=== PATIENT | female | born 2000 | race Caucasian/White ===

== ENCOUNTER 2023-08-16 19:08 | Emergency (ER) | payer BC, SELFPAY ==
[2023-08-16 19:22] VITALS: BP 107/54; PULSE 85; RESP 20; TEMP 36.4; O2SAT 98; BMI 39.1
--- NOTE | 2023-08-16 19:33 | ED_ITS ---
HPI - Wound/Laceration General Chief Complaint: Wound/Laceration Stated Complaint: LACERATION/PUNCTURE Time Seen by Provider: 08/16/23 19:11 Source: patient Mode of arrival: walk-in Limitations: no limitations History of Present Illness HPI narrative: patient is a 23-year-old female who presents to the emergency department. Evaluation of the laceration to the distal tip of the left index finger. Patient states she was cutting a squash when a serrated knife became stuck and while trying to dislodge the knife, she had her fingertip. Unknown last tetanus. She is not concerned for . Bleeding has been well-controlled. Related Data Previous Rx's Medication Instructions Recorded naproxen sodium 550 mg tablet 550 mg PO BID PRN pain #10 tabs 08/16/23 Allergies Allergy/AdvReac Type Severity Reaction Status Date / Time No Known Drug Allergies Allergy Verified 08/16/23 19:27 Review of Systems ROS Constitutional Denies: fever or chills Respiratory Denies: shortness of breath or cough Gastrointestinal Denies: nausea or vomiting Musculoskeletal Denies: back pain Integumentary/Breast Denies: rash Hematologic/Lymphatic Denies: easy bruising PFSH [facility] Social History Smoking status: Never smoker Exam Narrative Exam Narrative: Gen.: Awake, alert, in no distress Head: Normocephalic, atraumatic ENT: Moist mucous membranes Respiratory: No respiratory distress Extremities: Moves extremities equally, 1.5 cm superficial laceration of the left 2nd finger, distal phalanx. Laceration is distal to the DIP joint. There is no joint laceration or fingernail laceration. The laceration is well approximated, no active bleeding. No subcutaneous tissue exposure. Psych: Normal mood and affect Neuro: No focal neuro deficit Skin: Warm, dry Constitutional Vital Signs, click to edit/add: Last Vital Signs Temp 97.6 F 08/16/23 19:22 Pulse 85 08/16/23 19:22 Resp 20 08/16/23 19:22 BP 107/54 08/16/23 19:22 Pulse Ox 98 08/16/23 19:22 O2 Del Method Room Air 08/16/23 19:22 Course Vital Signs Vital signs: Vital Signs Temperature 97.6 F 08/16/23 19:22 Pulse Rate 85 08/16/23 19:22 Respiratory Rate 20 08/16/23 19:22 Blood Pressure 107/54 08/16/23 19:22 Pulse Oximetry 98 08/16/23 19:22 Oxygen Delivery Method Room Air 08/16/23 19:22 Temperature 97.6 F 08/16/23 19:22 Pulse Rate 85 08/16/23 19:22 Respiratory Rate 20 08/16/23 19:22 Blood Pressure 107/54 08/16/23 19:22 Pulse Oximetry 98 08/16/23 19:22 Oxygen Delivery Method Room Air 08/16/23 19:22 MDM - Wound/Laceration MDM Narrative Medical decision making narrative: patient became lightheaded on arrival to the Emergency Room, she states she does not tolerate pain, needles or blood. Tetanus is updated in the Emergency Room. As the laceration is distal to the joint, well approximated we will use tissue adhesive. The laceration was soaked in Hibiclens and saline. Tissue adhesive used to close the area and a bulky dressing was applied. Follow-up with PCP and return to the Emergency Room if symptoms change or worsen. Medical Records Attestation: I reviewed the patient's medical records. Discharge Plan Discharge Chief Complaint: Wound/Laceration Clinical Impression: Finger laceration Patient Disposition: Home, Self-Care Time of Disposition Decision: 19:36 Condition: Good Prescriptions / Home Meds: New naproxen sodium 550 mg tablet 550 mg PO BID PRN (Reason: pain) Qty: 10 0RF Instructions: Finger Laceration (ED), Skin Adhesive Care (ED) Stand Alone Forms: Portal Instructions Referrals: Gaurav Wheeler DO [Primary Care Provider] - 1 week Discharge Date/Time: 08/16/23 20:26
[2023-08-16] MEDS: ADACEL DIPH,PERTUSS(ACELL),TET VAC/PF 0.5 ML ADULT SYRINGE IM (19:58)
[2023-08-16] MEDS: ONDANSETRON 4 MG RAPDIS TABLET SL (20:18)
[2023-08-16] MEDS: HYDROCODONE/ACET 5-325 MG TABLET 1 TAB PO (20:18)
[2023-08-16] MEDS: IBUPROFEN 600 MG TABLET PO (20:18)
== END 2023-08-16 20:26 | disposition home or self-care (01) ==
PROVIDERS: Emergency Provider Emergency Medicine; PCP Family Medicine
DX: S61.211A Laceration without foreign body of left index finger without damage to nail, initial encounter (principal); Z23 Encounter for immunization; W26.0XXA Contact with knife, initial encounter
CPT/HCPCS: 12001; 90471; 90715; 99283

== ENCOUNTER 2024-02-21 17:27 | Emergency (ER) | payer BC, SELFPAY ==
[2024-02-21 17:29] VITALS: BP 167/94; PULSE 102; TEMP 37; O2SAT 98; BMI 37.8
--- NOTE | 2024-02-21 17:34 | XR_ITS ---
[address] [address] Patient Name: DRAKE GRIFFITHS MRN: [id number] date: 2000 Sex: F Assigned Patient Location: ER Current Patient Location: ED.MAIN Accession/Order Number: [id number] Exam Date: 02/21/2024 17:45 Report Date: 02/21/2024 20:53 At the request of: LILA HINTON Procedure: XR knee RT 4V EXAMINATION: XR knee RT 4V, , 02/21/2024 5:45 PM EDT INDICATION: right knee pain HISTORY: Ordering Provider Reason for Exam: right knee pain Technologist Note: Additional: COMPARISON: None. TECHNIQUE: Right knee x-ray: 3 view(s). FINDINGS: No acute fracture. Joint alignment is anatomic. Joint spaces are preserved. No significant joint effusion. Soft tissues are within normal limits. XR/XR knee RT 4V IMPRESSION: No acute fracture or traumatic malalignment. Electronically authenticated by: XOCHITL FITZPATRICK Date: 02/21/2024 20:53
--- NOTE | 2024-02-21 17:41 | ED.GENADUL1 ---
HPI HPI - General Adult General Chief complaint: Extremity Injury, Upper Stated complaint: Lower Extremity Injury Time Seen by Provider: 02/21/24 17:32 Source: patient Mode of arrival: walk-in Limitations: no limitations History of Present Illness HPI narrative: Patient is a 23-year-old female presents to the emergency department for 2-week history of right knee pain. She states she occasionally feels popping in the bilateral knees but states the right knee popped 2 weeks ago and while she was moving the other day, she had an increase in pain to the anteromedial aspect of the right knee. She denies any falls or injuries. She denies any ankle pain or left lower extremity pain. She is not concerned for . She has been using ibuprofen without improvement. No calf pain. Related Data Previous Rx's ?Medication ?Instructions ?Recorded naproxen sodium 550 mg tablet 550 mg PO BID PRN pain #10 tabs 08/16/23 methocarbamol 750 mg tablet 750 mg PO TID PRN pain #20 tabs 02/21/24 methylprednisolone 4 mg tablets in See Rx Instructions .Route 02/21/24 a dose pack (Medrol (Kurt)) .COMPLEX #21 ea Allergies Allergy/AdvReac Type Severity Reaction Status Date / Time No Known Drug Allergies Allergy Verified 08/16/23 19:27 Opioid HPI Opioid Management Most Recent Opioid Data: Last Pain Scale 7 02/21/24 17:35 Review of Systems ROS Constitutional Denies: fever or chills Ears, nose, mouth, and throat Denies: throat pain or nasal congestion Cardiovascular Denies: chest pain Respiratory Denies: shortness of breath Gastrointestinal Denies: nausea or vomiting Musculoskeletal Reports: extremity pain, extremity swelling and joint pain; Denies: back pain or neck pain Integumentary/Breast Denies: rash Neurological Denies: headache Hematologic/Lymphatic Denies: easy bruising or easy bleeding PFSH PFSH Social History Smoking status: Never smoker Exam Narrative Exam Narrative: Gen.: Awake, alert, in no distress Head: Normocephalic, atraumatic ENT: Moist mucous membranes Respiratory: No respiratory distress Extremities: Moves extremities equally, Tenderness of the anteromedial aspect of the right patella, exam is limited by body habitus but there is no obvious joint effusion or deformity of the right knee. Normal flexion and extension of the right knee with no pain over the posterior right knee or calf. Normal dorsiflexion and plantarflexion of the right foot. Psych: Normal mood and affect Neuro: No focal neuro deficit Skin: Warm, dry, intact Constitutional Vital Signs, click to edit/add: Last Vital Signs Temp 98.6 F 02/21/24 17:29 Pulse 102 H 02/21/24 17:29 Resp 18 02/21/24 17:29 BP 167/94 H 02/21/24 17:29 Pulse Ox 98 02/21/24 17:29 O2 Del Method Room Air 02/21/24 17:29 Course Vital Signs Vital signs: Vital Signs Temperature 98.6 F 02/21/24 17:29 Pulse Rate 102 H 02/21/24 17:29 Respiratory Rate 18 02/21/24 17:29 Blood Pressure 167/94 H 02/21/24 17:29 Pulse Oximetry 98 02/21/24 17:29 Oxygen Delivery Method Room Air 02/21/24 17:29 Temperature 98.6 F 02/21/24 17:29 Pulse Rate 102 H 02/21/24 17:29 Respiratory Rate 18 02/21/24 17:29 Blood Pressure 167/94 H 02/21/24 17:29 Pulse Oximetry 98 02/21/24 17:29 Oxygen Delivery Method Room Air 02/21/24 17:29 Medical Decision Making MDM Narrative Medical decision making narrative: X-rays of the right knee with no evidence of acute fracture or dislocation. Patient with a benign exam consistent with right knee strain/sprain. She was placed in an Carl wrap and remains neurovascularly intact. Rest, ice, elevate. Follow-up with orthopedics if needed and follow-up with PCP for further evaluation and treatment. Medrol Dosepak and Robaxin given for home. Medical Records Medical records reviewed: Yes I reviewed the patient's medical records Imaging Data xr knee: Attestation: I have reviewed the pertinent imaging results. Discharge Plan Discharge Stand Alone Forms: Portal Instructions Chief Complaint: Extremity Injury, Upper Clinical Impression: Right knee sprain, Acute pain of right knee Patient Disposition: Home, Self-Care Time of Disposition Decision: 17:55 Condition: Good Prescriptions / Home Meds: New methocarbamol 750 mg tablet 750 mg PO TID PRN (Reason: pain) Qty: 20 0RF methylprednisolone [Medrol (Kurt)] 4 mg tablets,dose pack See Rx Instructions .ROUTE .COMPLEX Qty: 21 0RF Rx Instructions: Taper as directed No Action naproxen sodium 550 mg tablet 550 mg PO BID PRN (Reason: pain) Qty: 10 0RF Print Language: [place]an Instructions: Knee Sprain (ED) Referrals: Gaurav Wheeler DO [Primary Care Provider] - 1 week Tavo Putnam MD [Physician] - 1 week Discharge Date/Time: 02/21/24 18:02
--- OUTSIDE RECORDS SUMMARY | 2024-02-21 17:56 | XMS_ITS | CCD ---
Author Organization [facility] Care Team Providers Care Crop Puller Name Role Phone Gaurav Brantley Unavailable DR GAURAV BRANTLEY Primary Care Unavailable DR RAKESH CHEN Admitting Unavailable APRIL, DR RAKESH Walker Attending Unavailable APRIL, DR RAKESH Walker Consulting Unavailable DR MARIANNA MILES Consulting Unavailable DR GAURAV BRANTLEY Primary Care Unavailable BAHMAN SERRA Admitting BAHMAN Lopez Attending Unavailable APRIL, DR RAKESH Walker Consulting Unavailable BAHMAN SERRA Consulting Unavailable Medications Current Medications Medication Drug Class(es) Dates Sig (Normalized) Sig (Original) azithromycin 250 mg oral tablet (7 sources) Macrolide Antimicrobial Start: 10-02-2023 Zithromax Z-Kurt 250 MG 2 tablets on the first day, then 1 tablet daily for 4 days Orally Once a day for 5 day(s) Sep, Active Start: 12-28-2022 Zithromax Z-Pa k 250 MG as directed Orally as directed 1 pack Dec, Active betamethasone 1 mg/ml topical cream (1 source) Corticosteroid Start: 11-16-2023 Betamethasone Valerate 0.1 % 1 application Externally Once a day Please dispense large tube or jar Oct, Active ondansetron 4 mg disintegrating oral tablet (7 sources) Serotonin-3 Receptor Antagonist Start: 02-04-2022 take 1 tablet by mouth every six hours as needed Ondansetron 4 MG 1 tablet on the tongue and allow to dissolve Orally every 6 hrs prn Jan, Active paxlovid (300/100) 20 x 150 mg & 10 x 100mg tablet therapy pack (2 sources) Start: 11-02-2023 Paxlovid (300/100) 20 x 150 MG & 10 x 100MG as directed Orally GFR >60, positive covid at home 11/02/23 Oct, Active predniSONE 20 mg oral tablet (8 sources) Start: 11-16-2023 predniSONE 20 MG 1 tablet Orally BID for 7 days then Once a day for 7 days Oct, Active Start: 10-02-2023 predniSONE 20 MG 1 tablet Orally Twice a day for five days, daily for five days Sep, Active Start: 12-28-2022 predniSONE 10 MG 1 tablet Orally BID x 5 days then daily x 5 days for 10 days Dec, Active sulfamethoxazole 800 mg / trimethoprim 160 mg oral tablet (6 sources) Dihydrofolate Reductase Inhibitor Antibacterial, Sulfonamide Antimicrobial Start: 04-28-2021 take 1 tablet by mouth every twelve hours Bactrim DS 800-160 MG 1 tablet Orally Twice a day Mar, Active Problems Active Problems Problem Classification Problem Date Documented Da te Episodic/Chronic Allergic reactions (1 source) Unspecified contact dermatitis, unspecified cause Episodic Disorders of lipid metabolism (7 sources) Hyperlipidemia; Translations: [Hyperlipidemia, unspecified] Chronic Fever of unknown origin (1 source) Fever, unspecified; Translations: [FEVER UNSPECIFIED] Onset: 09-06-2022 Episodic Headache; including migraine (7 sources) Headache; Translations: [Headache] Episodic Nausea and vomiting (10 sources) Nausea; Translations: [Nausea] Onset: 02-04-2022 Resolved: 02-04-2022 Episodic Other disorders of stomach and duodenum (7 sources) Indigestion; Translations: [Functional dyspepsia] Episodic Other ear and sense organ disorders (1 source) Ear sensations - finding; Translations: [Other specified disorders of ear, bilateral] Episodic Other ear and sense organ disorders (1 source) Other specified disorders of ear, bilateral Episodic Other inflammatory condition of skin (1 source) Pruritus, unspecified; Translations: [Pruritus] Episodic Other upper respiratory infections (6 sources) Acute pharyngitis, unspecified; Translations: [ACUTE PHARYNGITIS UNSPECIFIED] Onset: 02-04-2022 Resolved: 02-04-2022 Episodic Ovarian cyst (7 sources) Cyst of ovary; Translations: [Unspecified ovarian cyst, unspecified side] Episodic Residual codes; unclassified (7 sources) Generalized aches and pains; Translations: [Pain, unspecified] Episodic Spondylosis; intervertebral disc disorders; other back problems (7 sources) Neck pain; Translations: [Cervicalgia] Episodic Unclassified (1 source) CONTACT W/AND (SUSP) EXPOS COVID-19; Translations: [CONTACT W/AND (SUSP) EXPOS COVID-19] Onset: 04-27-2022 Past or Other Problems Problem Classification Problem Date Documented Da te Episodic/Chronic Conditions associated with dizziness or vertigo (5 sources) Dizziness and giddiness; Translations: [DIZZINESS AND GIDDINESS] Onset: 02-04-2022 Resolved: 02-04-2022 Episodic Genitourinary symptoms and ill-defined conditions (1 source) Other abnormal findings in urine; Translations: [OTHER ABNORMAL FINDINGS IN URINE] Onset: 04-27-2022 Episodic Residual codes; unclassified (1 source) Other general symptoms and signs Onset: 02-04-2022 Resolved: 02-04-2022 Episodic Residual codes; unclassified (1 source) Family history of diabetes mellitus Onset: 02-04-2022 Resolved: 02-04-2022 Episodic Unclassified (1 source) Cough R05.9 Unclassified (1 source) Unclassified (1 source) History of COVID-19 Z86.16 Viral infection (4 sources) Disease caused by 2019-nCoV; Translations: [COVID-19] Results Test Name Value Interpretation Reference Range Facility COVID + FLU Quick Testingon 12-28-2022 SARS-CoV-2 (COVID-19) RNA VINICIO+probe Ql (Unsp spec) Negative [facility] Other COVID + FLU Quick Testing Negative [facility] Other Quick Strepon 12-28-2022 S. pyogenes Org specific cx Ql (Throat) Negative [facility] Other Quick Strep [facility] Other RSVon 12-28-2022 RSV Ag IA Ql (Unsp spec) Positive [facility] Other ER URINE PROFILEon 2 Bilirubin Ql (U) Negative Normal NEGATIVE [facility] Comment on above: Performed By: #### P LONA MADRID UMICRO #### [facility] [address] [place] [address] Dr. Carmen Leach Clarity (U) CLEAR Normal CLEAR [facility] Comment on above: Performed By: #### P REGU, ERUR, UMICRO #### [facility] [address] [address] [address] Carmen Leach Color (U) YELLOW Normal YELLOW [facility] Comment on above: Performed By: #### P REGU, ERUR, UMICRO #### [facility] [address] [address] [address] Carmen ZAVALA A micrscopic examination will be performed if indicated. Normal [facility] Comment on above: Performed By: #### P REGU, ERUR, UMICRO #### [facility] [address] [address] [address] Carmen Leach Glucose Ql (U) Negative Normal NEGATIVE [facility] Comment on above: Performed By: #### P REGU, ERUR, UMICRO #### [facility] [address] [address] [address] Carmen Leach Hemoglobin Ql (U) SMALL Abnormal NEGATIVE [facility] Comment on above: Performed By: #### P REGU, ERUR, UMICRO #### [facility] [address] [address] [address] Carmen Leach Ketones Ql (U) Negative Normal NEGATIVE [facility] Comment on above: Performed By: #### P REGU, ERUR, UMICRO #### [facility] [address] [address] [address] Carmen Leach LEUKOCYTES Negative Normal NEGATIVE [facility] Comment on above: Performed By: #### P REGU, ERUR, UMICRO #### [facility] [address] [address] [address] Carmen Leach Nitrite Ql (U) Negative Normal NEGATIVE [facility] Comment on above: Performed By: #### P REGU, ERUR, UMICRO #### [facility] [address] [address] [address] Carmen Leach pH (U) 6.0 [pH] Normal 5-9 [facility] Comment on above: Performed By: #### P REGU, ERUR, UMICRO #### [facility] [address] [address] [address] Carmen Leach SPEC GRAVITY 1.025 Normal 1.005-<=1.025 [facility] Comment on above: Performed By: #### P REGU, ERUR, UMICRO #### [facility] [address] [address] [address] Carmen Leach UA PROTEIN Negative Normal NEGATIVE/ TRACE [facility] Comment on above: Performed By: #### P REGU, ERUR, UMICRO #### [facility] [address] [address] [address] Carmen Leach UR MICRO IND INDICATED Normal [facility] Comment on above: Performed By: #### P REGU, ERUR, UMICRO #### [facility] [address] [place] [address] Dr. Carmen Leach Urobilinogen Qn (U) 0.2 {Dc'U}/dL Normal 0.2 - 1.0 [facility] Comment on above: Performed By: #### P REGU, ERUR, UMICRO #### [facility] [address] [place] [address] Dr. Carmen Leach URon 09-04-2022 , QUAL Negative Normal NEGATIVE [facility] Comment on above: Performed By: #### P REGU, ERUR, UMICRO #### [facility] [address] [place] [address] Dr. Carmen Leach URINE MICROSCOPIC ONLYon BACTERIA TRACE Abnormal NONE SEEN [facility] Comment on above: Performed By: #### C BC #### [facility] [address] [place] [address] Dr. Carmen Leach Bacteria identified Cx Nom (U) NOT INDICATED Normal [facility] Comment on above: Performed By: #### C BC #### [facility] [address] [place] [address] Dr. Carmen Leach CAST NONE SEEN Normal NONE SEEN [facility] Comment on above: Performed By: #### C BC #### [facility] [address] [place] [address] Dr. Carmen Leach Crystals LM Nom (Urine sed) NONE SEEN Normal NONE SEEN [facility] Comment on above: Performed By: #### C BC #### [facility] [address] [place] [address] Dr. Carmen Leach Epithelial cells LM Ql (Urine sed) MODERATE Abnormal NONE SEEN /RARE [facility] Comment on above: Performed By: #### C BC #### [facility] [address] [place] [address] Dr. Carmen Leach MUCOUS MODERATE Abnormal NONE SEEN [facility] Comment on above: Performed By: #### C BC #### [facility] [address] [place] [address] Dr. Carmen Leach RBC 5-10 Abnormal 0-2 [facility] Comment on above: Performed By: #### C BC #### [facility] [address] [place] [address] Dr. Carmen Leach WBC NONE SEEN Normal NONE SEEN [facility] Comment on above: Performed By: #### C BC #### [facility] [address] [place] [address] Dr. Carmen Leach CBC AUTO DIFFon 04-23-2022 BASO # 0.0 103/ul Normal 0.0-0.1 [facility] Comment on above: Performed By: #### C BC #### [facility] [address] [place] [address] Dr. Carmen Leach Basophils/100 WBC (Bld) 0.4 % Normal 0.2-2.0 [facility] Comment on above: Performed By: #### C BC #### [facility] [address] [place] [address] Dr. Carmen Leach EO # 0.1 103/ul Normal 0.0-0.7 [facility] Comment on above: Performed By: #### C BC #### [facility] [address] [place] [address] Dr. Carmen Leach Eosinophils/100 WBC (Bld) 1.2 % Normal 0.9-7.0 [facility] Comment on above: Performed By: #### C BC #### [facility] [address] [place] [address] Dr. Carmen Leach Erythrocyte distribution width (RBC) [Ratio] 13.6 % Normal 11.0-15.0 [facility] Comment on above: Performed By: #### C BC #### [facility] [address] [place] [address] Dr. Carmen Leach Hematocrit (Bld) [Volume fraction] 38.3 % Normal 36.0-48.0 [facility] Comment on above: Performed By: #### C BC #### [facility] [address] [place] [address] Dr. Carmen Leach Hemoglobin (Bld) [Mass/Vol] 12.3 g/dL Normal 12.0-16.0 [facility] Comment on above: Performed By: #### C BC #### [facility] [address] [place] [address] Dr. Carmen Leach IG # 0.02 10e3/ul Normal 0.00-0.03 [facility] Comment on above: Performed By: #### C BC #### [facility] [address] [place] [address] Dr. Carmen Leach IG % 0.3 % Normal 0.0-0.5 [facility] Comment on above: Performed By: #### C BC #### [facility] [address] [place] [address] Dr. Carmen Leach LYMPH # 2.7 103/ul Normal 1.2-3.8 [facility] Comment on above: Performed By: #### C BC #### [facility] [address] [place] [address] Dr. Carmen Leach Lymphocytes/100 WBC (Bld) 36.4 % Normal 20.5-60.0 [facility] Comment on above: Performed By: #### C BC #### [facility] [address] [place] [address] Dr. Carmen Leach MANUAL DIFF REQ NO Normal [facility] Comment on above: Performed By: #### C BC #### [facility] [address] [address] [address] Carmen Leach MCH (RBC) [Entitic mass] 25.7 pg Critically low 26.7-34.0 [facility] Comment on above: Performed By: #### C BC #### [facility] [address] [place] [address] Dr. Carmen Leach MCHC (RBC) [Mass/Vol] 32.1 g/dL Normal 29.9-35.2 [facility] Comment on above: Performed By: #### C BC #### [facility] [address] [place] [address] Dr. Carmen Leach MCV (RBC) [Entitic vol] 80.0 fL Critically low 81.0-99.0 [facility] Comment on above: Performed By: #### C BC #### [facility] [address] [place] [address] Dr. Carmen Leach MONO # 0.8 103/ul Normal 0.3-0.8 [facility] Comment on above: Performed By: #### C BC #### [facility] [address] [place] [address] Dr. Carmen Leach Monocytes/100 WBC (Bld) 10.4 % Normal 1.7-12.0 [facility] Comment on above: Performed By: #### C BC #### [facility] [address] [place] [address] Dr. Carmen Leach NEUT # 3.8 103/ul Normal 1.4-6.5 [facility] Comment on above: Performed By: #### C BC #### [facility] [address] [place] [address] Dr. Carmen Leach Neutrophils/100 WBC (Bld) 51.3 % Normal 43.0-75.0 [facility] Comment on above: Performed By: #### C BC #### [facility] [address] [place] [address] Dr. Carmen Leach Platelet mean volume (Bld) [Entitic vol] 9.8 fL Normal 9.5-13.5 [facility] Comment on above: Performed By: #### C BC #### [facility] [address] [address] [address] Carmen Leach PLT 329 103/ul Normal 150-450 [facility] Comment on above: Performed By: #### C BC #### [facility] [address] [place] [address] Dr. Carmen Leach RBC 4.79 106/ul Normal 4.20-5.40 [facility] Comment on above: Performed By: #### C BC #### [facility] [address] [place] [address] Dr. Carmen Leach WBC 7.4 103/ul Normal 4.0-11.0 [facility] Comment on above: Performed By: #### C BC #### [facility] [address] [place] [address] Dr. Carmen Leach CULTURE URINEon 04-23-2022 CULTURE URINE Culture Observations : LIGHT GROWTH OF MIXED GENITAL AYALA. NO POTENTIAL PATHOGENS SEEN. Normal [facility] Comment on above: Performed By: #### U RCX #### [facility] [address] [place] [address] Dr. Carmen Leach [facility] SARS-CoV-2 (COVID-19) RNA VINICIO+probe Ql (Unsp spec) Not detected Normal NOT DETECTED [facility] Comment on above: Result Comment: When diagnostic testing is negative, the possibility of a false negative should be considered in the context of a patient's recent exposures and the presence of clinical signs and symptoms consistent with SARS-CoV-2. This test is not yet approved or cleared by the [place] FDA. When there are no FDA-approved or cleared tests available, and other criteria are met, FDA can make tests available under an emergency access mechanism called an Emergency Use Authorization (EUA). The EUA for this test is supported by the [employer] of Health and Human Service's declaration that circumstances exist to justify the emergency use of in vitro diagnostics for the detection and/or diagnosis of the virus that causes COVID-19. This EUA will remain in effect for the duration of the COVID-19 declaration justifying emergency of IVDs, unless it is terminated or revoked by the FDA (after which the test may no longer be used). Performed By: #### C VDTBH #### [facility] [address] [place] [address] Dr. Carmen Leach DRUG SCREEN RAPID (URINE)on 04-23-2022 AMP Negative Normal NEGATIVE [facility] Comment on above: Performed By: #### D RUGRPD #### [facility] [address] [place] [address] Dr. Carmen Leach BAR Negative Normal NEGATIVE [facility] Comment on above: Performed By: #### D RUGRPD #### [facility] [address] [place] [address] Dr. Carmen Leach BUP Negative Normal NEGATIVE [facility] Comment on above: Performed By: #### D RUGRPD #### [facility] [address] [place] [address] Dr. Carmen Leach BZO Negative Normal NEGATIVE [facility] Comment on above: Performed By: #### D RUGRPD #### [facility] [address] [place] [address] Dr. Carmen Leach JULIUS Negative Normal NEGATIVE [facility] Comment on above: Performed By: #### D RUGRPD #### [facility] [address] [place] [address] Dr. Carmen Leach CUT-OFFS SEE BELOW Normal [facility] Comment on above: Result Comment: AMP (Amphetamine): 500ng/mL, BAR (Barbituates): 200 ng/mL, BZO (Benzodiazepines): 150 ng/mL, BUP (Buprenorphine): 10 ng/mL, JULIUS (Cocaine): 150 ng/mL, mAMP (Methamphetamine): 500 ng/mL, MTD (Methadone): 200 ng/mL, OPI (Opiates): 100 ng/mL, OXY (Oxycodone): 100 ng/mL, PCP (Phencyclidine): 25 ng/mL, PPX (Propoxyphene): 300 ng/mL, THC (Cannabinoids): 50 ng/mL, TCA (Trycyclic Antidepressants): 300 ng/mL Performed By: #### D RUGRPD #### [facility] [address] [place] [address] Dr. Carmen Leach DRUG CUT HEADER DRUG CLASS TEST SYSTEM CUT-OFF CONCENTRATIONS ARE FOLLOWS: Normal [facility] Comment on above: Performed By: #### D RUGRPD #### [facility] [address] [place] [address] Dr. Carmen Leach mAMP Negative Normal NEGATIVE [facility] Comment on above: Performed By: #### D RUGRPD #### [facility] [address] [address] [address] Carmen Leach MTD Negative Normal NEGATIVE [facility] Comment on above: Performed By: #### D RUGRPD #### [facility] [address] [address] [address] Carmen Leach OPI Negative Normal NEGATIVE [facility] Comment on above: Performed By: #### D RUGRPD #### [facility] [address] [place] [address] Dr. Carmen Leach OXY Negative Normal NEGATIVE [facility] Comment on above: Performed By: #### D RUGRPD #### [facility] [address] [place] [address] Dr. Carmen Leach PCP Negative Normal NEGATIVE [facility] Comment on above: Performed By: #### D RUGRPD #### [facility] [address] [place] [address] Dr. Carmen Leach PPX Negative Normal NEGATIVE [facility] Comment on above: Performed By: #### D RUGRPD #### [facility] [address] [place] [address] Dr. Carmen Leach TCA Negative Normal NEGATIVE [facility] Comment on above: Performed By: #### D RUGRPD #### [facility] [address] [place] [address] Dr. Carmen Leach THC Negative Normal NEGATIVE [facility] Comment on above: Performed By: #### D RUGRPD #### [facility] [address] [place] [address] Dr. Carmen Leach ER URINE PROFILEon 2 Bilirubin Ql (U) Negative Normal NEGATIVE [facility] Comment on above: Performed By: #### CHIKI DOUGHERTY #### [facility] [address] [place] [address] Dr. Carmen Leach Clarity (U) CLOUDY Abnormal CLEAR [facility] Comment on above: Performed By: #### ROMEL DOUGHERTYRO #### [facility] [address] [place] [address] Dr. Carmen Leach Color (U) LT. YELLOW Normal YELLOW [facility] Comment on above: Performed By: #### ROMEL DOUGHERTYRO #### [facility] [address] [place] [address] Dr. Carmen ZAVALA A micrscopic examination will be performed if indicated. Normal [facility] Comment on above: Performed By: #### ROMEL DOUGHERTYRO #### [facility] [address] [place] [address] Dr. Carmen Leach Glucose Ql (U) Negative Normal NEGATIVE [facility] Comment on above: Performed By: #### ROMEL DOUGHERTYRO #### [facility] [address] [place] [address] Dr. Carmen Leach Hemoglobin Ql (U) LARGE Abnormal NEGATIVE [facility] Comment on above: Performed By: #### CHIKI DOUGHERTY #### [facility] [address] [place] [address] Dr. Carmen Leach Ketones Ql (U) Negative Normal NEGATIVE [facility] Comment on above: Performed By: #### CHIKI DOUGHERTY #### [facility] [address] [place] [address] Dr. Carmen Leach LEUKOCYTES Negative Normal NEGATIVE [facility] Comment on above: Performed By: #### ROMEL DOUGHERTYRO #### [facility] [address] [place] [address] Dr. Carmen Leach Nitrite Ql (U) Negative Normal NEGATIVE [facility] Comment on above: Performed By: #### ROMEL DOUGHERTYRO #### [facility] [address] [place] [address] Dr. Carmen Leach pH (U) 7.0 [pH] Normal 5-9 [facility] Comment on above: Performed By: #### E BRADFORD UMICRO #### [facility] [address] [address] [address] Carmen Leach SPEC GRAVITY 1.025 Normal 1.005-<=1.025 [facility] Comment on above: Performed By: #### E BRADFORD, UMICRO #### [facility] [address] [address] [address] Carmen Leach UA PROTEIN Negative Normal NEGATIVE/ TRACE [facility] Comment on above: Performed By: #### E RUR, UMICRO #### [facility] [address] [address] [address] Carmen Leach UR MICRO IND INDICATED Normal [facility] Comment on above: Performed By: #### E BRADFORD ICRO #### [facility] [address] [place] [address] Dr. Carmen Leach Urobilinogen Qn (U) 0.2 {Dc'U}/dL Normal 0.2 - 1.0 [facility] Comment on above: Performed By: #### Addis FELDER ICRO #### [facility] [address] [place] [address] Dr. Carmen Leach URon 04-23-2022 , QUAL Negative Normal NEGATIVE [facility] Comment on above: Performed By: #### P REGU #### [facility] [address] [place] [address] Dr. Carmen Leach PROF 14(COMP METB)on 022 Albumin [Mass/Vol] 3.8 g/dL Normal 3.4-5.0 [facility] Comment on above: Performed By: #### C MP #### [facility] [address] [place] [address] Dr. Carmen Leach Albumin/Globulin [Mass ratio] 1.0 {ratio} Normal [facility] Comment on above: Performed By: #### C MP #### [facility] [address] [address] [address] Carmen Leach ALP [Catalytic activity/Vol] 68 U/L Normal 46-116 [facility] Comment on above: Performed By: #### C MP #### [facility] [address] [address] [address] Carmen Leach ALT [Catalytic activity/Vol] 26 U/L Normal 14-59 [facility] Comment on above: Performed By: #### C MP #### [facility] [address] [address] [address] Carmen Leach Anion gap [Moles/Vol] 11.7 mmol/L Normal [facility] Comment on above: Performed By: #### C MP #### [facility] [address] [address] [address] Carmen Leach AST [Catalytic activity/Vol] 17 U/L Normal 15-37 [facility] Comment on above: Performed By: #### C MP #### [facility] [address] [address] [address] Carmen Leach Bilirubin [Mass/Vol] 0.3 mg/dL Normal 0.2-1.0 [facility] Comment on above: Performed By: #### C MP #### [facility] [address] [address] [address] Carmen Leach Calcium [Mass/Vol] 8.8 mg/dL Normal 8.5-10.1 [facility] Comment on above: Performed By: #### C MP #### [facility] [address] [address] [address] Carmen Leach Chloride [Moles/Vol] 105 mmol/L Normal 98-107 [facility] Comment on above: Performed By: #### C MP #### [facility] [address] [address] [address] Carmen Leach CO2 [Moles/Vol] 26.8 mmol/L Normal 21.0-32.0 [facility] Comment on above: Performed By: #### C MP #### [facility] [address] [address] [address] Carmen Leach Creatinine [Mass/Vol] 0.95 mg/dL Normal 0.55-1.02 [facility] Comment on above: Performed By: #### C MP #### [facility] [address] [address] [address] Carmen Leach EGFR-AF FAROESE >60 Normal >=60 [facility] Comment on above: Performed By: #### C MP #### [facility] [address] [address] [address] Carmen Leach EGFR-NON AF FAROESE >60 Normal >=60 [facility] Comment on above: Performed By: #### C MP #### [facility] [address] [address] [address] Carmen Leach Globulin (S) [Mass/Vol] 3.8 g/dL Normal [facility] Comment on above: Performed By: #### C MP #### [facility] [address] [address] [address] Carmen Leach Glucose [Mass/Vol] 87 mg/dL Normal 74-106 [facility] Comment on above: Performed By: #### C MP #### [facility] [address] [address] [address] Carmen Leach Potassium [Moles/Vol] 3.5 mmol/L Normal 3.5-5.1 [facility] Comment on above: Performed By: #### C MP #### [facility] [address] [address] [address] Carmen Leach Protein [Mass/Vol] 7.6 g/dL Normal 6.4-8.2 [facility] Comment on above: Performed By: #### C MP #### [facility] [address] [address] [address] Carmen Leach Sodium [Moles/Vol] 140 mmol/L Normal 136-145 [facility] Comment on above: Performed By: #### C MP #### [facility] [address] [address] [address] Carmen Leach Urea nitrogen [Mass/Vol] 13.0 mg/dL Normal 7.0-18.0 [facility] Comment on above: Performed By: #### C MP #### [facility] [address] [address] [address] Carmen Leach Urea nitrogen/Creatinin e [Mass ratio] 13.7 mg/mg Normal [facility] Comment on above: Performed By: #### C MP #### [facility] [address] [place] [address] Dr. Carmen Leach URINE MICROSCOPIC ONLYon BACTERIA TRACE Abnormal NONE SEEN [facility] Comment on above: Performed By: #### E RUR, UMICRO #### [facility] [address] [place] [address] Dr. Carmen Leach Bacteria identified Cx Nom (U) INDICATED Normal [facility] Comment on above: Performed By: #### E RUR, UMICRO #### [facility] [address] [place] [address] Dr. Carmen Leach CAST NONE SEEN Normal NONE SEEN [facility] Comment on above: Performed By: #### E RUR, UMICRO #### [facility] [address] [place] [address] Dr. Carmen Leach Crystals LM Nom (Urine sed) SEEN Abnormal NONE SEEN [facility] Comment on above: Performed By: #### E RUR, UMICRO #### [facility] [address] [place] [address] Dr. Carmen Leach Epithelial cells LM Ql (Urine sed) RARE Normal NONE SEEN /RARE [facility] Comment on above: Performed By: #### E RUR, UMICRO #### [facility] [address] [place] [address] Dr. Carmen Leach MUCOUS NONE SEEN Normal NONE SEEN [facility] Comment on above: Performed By: #### E RUR, UMICRO #### [facility] [address] [place] [address] Dr. Carmen Leach RBC 5-10 Abnormal 0-2 [facility] Comment on above: Performed By: #### E RUR, UMICRO #### [facility] [address] [place] [address] Dr. Carmen Leach WBC 0-2 Abnormal NONE SEEN [facility] Comment on above: Performed By: #### E RUR, UMICRO #### [facility] [address] [address] [address] Carmen Leach COVID + FLU Quick Testingon 02-04-2022 SARS-CoV-2 (COVID-19) RNA VINICIO+probe Ql (Unsp spec) Negative [facility] Other Glucose - FINGER STICKon Glucose [Mass/Vol] 110 mg/dL [facility] Other Test, Urineon 04-0 Beta HCG ( test) Ql (U) Negative [facility] Other Quick Strepon 02-04-2022 S. pyogenes Org specific cx Ql (Throat) Negative [facility] Other Quick Strep [facility] Other Urine 10 SGon 02-04-2022 Albumin DL <= 20 mg/L (U) [Mass/Vol] Negative [facility] Other pH (U) 6.0 [pH] [facility] Other Urine 10 SG Negative [facility] Other Urine 10 SG >=1.030 [facility] Other Urine 10 SG trace-intact [facility] Other Urine 10 SG 0.2 [facility] Other COVID-19 Lab Corpon 10-29-20 21 SARS-CoV-2 (COVID-19) RNA VINICIO+probe Ql (Unsp spec) Not detected Normal Not Detected [facility] Comment on above: Order Comment: Healt hcare Worker?: N Result Comment: This nucleic acid amplification test was developed and its performance characteristics determined by [employer]. Nucleic acid amplification tests include RT- PCR and TMA. This test has not been FDA cleared or approved. This test has been authorized by FDA under an Emergency Use Authorization (EUA). This test is only authorized for the duration of time the declaration that circumstances exist justifying the authorization of the emergency use of in vitro diagnostic tests for detection of SARS-CoV-2 virus and/or diagnosis of COVID-19 infection under section 564(b)(1) of the Act, 21 U.S.C. 360bbb-3(b) (1), unless the authorization is terminated or revoked sooner. When diagnostic testing is negative, the possibility of a false negative result should be considered in the context of a patient's recent exposures and the presence of clinical signs and symptoms consistent with COVID-19. An individual without symptoms of COVID-19 and who is not shedding SARS-CoV-2 virus would expect to have a negative (not detected) result in this assay. PERFORMED BY: [facility] [address] [place] [address] PATHOLOGIST [employer] JIGNESH HENLEY M.D. Performed By: #### C ORONAVIRUS #### [facility] , COVID-19 Lab Corpon 05-26-20 21 SARS-CoV-2 (COVID-19) RNA VINICIO+probe Ql (Unsp spec) Not detected Normal Not Detected [facility] Comment on above: Order Comment: Reason for Exam Cough Healthcare Worker?: N Result Comment: This nucleic acid amplification test was developed and its performance characteristics determined by [employer]. Nucleic acid amplification tests include RT- PCR and TMA. This test has not been FDA cleared or approved. This test has been authorized by FDA under an Emergency Use Authorization (EUA). This test is only authorized for the duration of time the declaration that circumstances exist justifying the authorization of the emergency use of in vitro diagnostic tests for detection of SARS-CoV-2 virus and/or diagnosis of COVID-19 infection under section 564(b)(1) of the Act, 21 U.S.C. 360bbb-3(b) (1), unless the authorization is terminated or revoked sooner. When diagnostic testing is negative, the possibility of a false negative result should be considered in the context of a patient's recent exposures and the presence of clinical signs and symptoms consistent with COVID-19. An individual without symptoms of COVID-19 and who is not shedding SARS-CoV-2 virus would expect to have a negative (not detected) result in this assay. PERFORMED BY: [place] [address] PATHOLOGIST [employer] JIGNESH HENLEY M.D. Performed By: #### C ORONAVIRUS #### [facility] , HCG,Quantitativeon 1 HCG,Quantitative < 0.60 Normal [facility] Comment on above: Order Comment: Reaso n for Exam Nausea Result Comment: Appr oximate Approximate hCG Gestational Age Range (mIU/ml) (weeks) 0.2-1 5-50 1-2 50-500 2-3 100-5,000 3-4 500-10,000 4-5 1,000-50,000 5-6 10,000-100,000 6-8 15,000-200,000 8-12 10,000-100,000 PERFORMED BY: [place] [address] PATHOLOGIST [employer] JIGNESH HENLEY M.D. Performed By: #### H CGQNT #### [id number] [facility] Vital Signs Date Time Vital Sign Value Performing Clinician Facility 11-16-2023 14:15-0500 Body height 149.86 cm Gaurav Brantley Other [facility] Other 11-16-2023 14:15-0500 Body mass index (BMI) [Ratio] 42.41 kg/m2 Gaurav Brantley Other [facility] Other 11-16-2023 14:15-0500 Body weight 95.26 kg Gaurav Brantley Other [facility] Other 11-16-2023 14:15-0500 Diastolic blood pressure 76 mm[Hg] Gaurav Brantley Other [facility] Other 11-16-2023 14:15-0500 Respiratory rate 16 /min Gaurav Brantley Other [facility] Other 11-16-2023 14:15-0500 SaO2% (BldA) [Mass fraction] 97 % Gaurav Brantley Other [facility] Other 11-16-2023 14:15-0500 Systolic blood pressure 118 mm[Hg] Gaurav Brantley Other [facility] Other 02-04-2022 10:30-0400 Body height 149.86 cm Gaurav Brantley Other [facility] Other 02-04-2022 10:30-0400 Body mass index (BMI) [Ratio] 41.08 kg/m2 Gaurav Brantley Other [facility] Other 02-04-2022 10:30-0400 Body weight 92.26 kg Gaurav Brantley Other [facility] Other 02-04-2022 10:30-0400 Diastolic blood pressure 78 mm[Hg] Gaurav Brantley Other [facility] Other 02-04-2022 10:30-0400 Respiratory rate 18 /min Gaurav Brantley Other [facility] Other 02-04-2022 10:30-0400 SaO2% (BldA) [Mass fraction] 98 % Gaurav Brantley Other [facility] Other 02-04-2022 10:30-0400 Systolic blood pressure 124 mm[Hg] Gaurav Brantley Other [facility] Other Encounters Encounter Date Encounter Type Care Provider Facility Start: 11-16-2023 End: 11-16-2023 ambulatory Gaurav Brantley Other [facility] Other Start: 11-16-2023 Office outpatient vi sit 15 minutes Gaurav Brantley [facility] Start: 11-10-2023 End: 11-10-2023 ambulatory Gaurav Brantley Other [facility] Other Start: 11-10-2023 Telephone encounter Gaurav Brantley [facility] Start: 11-02-2023 End: 11-02-2023 ambulatory Gaurav Brantley Other [facility] Other Start: 11-02-2023 Telephone encounter Gaurav Brantley [facility] Start: 01-09-2023 End: 01-09-2023 ambulatory Gaurav Brantley Other [facility] Start: 01-09-2023 Telephone encounter Gaurav Brantley [facility] Start: 12-28-2022 End: 12-28-2022 ambulatory Gaurav Brantley Other [facility] Other Start: 12-28-2022 Nursing evaluation o f patient and report Gaurav Brantley [facility] Start: 12-28-2022 Telephone encounter Gaurav Brantley [facility] Start: 09-04-2022 End: 09-04-[address] GAURAV BRANTLEY Facility:[facility] Start: 04-23-2022 End: 04-24-[address] GAURAV BRANTLEY Facility:[facility] Start: 02-04-2022 End: 02-04-2022 ambulatory Gaurav Brantley Other [facility] Other Start: 02-04-2022 Office outpatient vi sit 25 minutes Gaurav Brantley [facility] Immunizations Immunization Date Immunization Notes Care Provider Fa cility NEGATED: Highlighted row has not occurred!01-09-2019 influenza, seasonal, injectable Patient Objection Gaurav Brantley Other [facility] Other Payers Date Payer Category Payer Unknown [id number] 1998 Unknown [id number] 1998 Unknown [id number] 1961 [facility] JANNY [id number] Social History Date Type Detail Facility Unknown if ever smoked [facility] Other Sex Assigned At Sex Assigned At Bir th [facility] Other Evaluation note 11-16-2023 Note Date & Type Note Facility 11-16-2023 Evaluation note Encounter Date Diagnosis Assessment Notes Oct, Ear fullness, bilateral (ICD-10 - H93.8X3) She is to try the prednisone taper and see if this helps alleviate her symptoms. Oct, Contact dermatitis (ICD-10 - L25.9) Patient does have multiple diffuse sores mainly noted on her abdomen, lower back, and right upper leg but is itching all over. She has not seen any bites or seen any lice since this started. She believes this is improving since onset and after discussion, I believe is likely a contact dermatitis possibly from detergent used at the hotel. Above medication prescribed and she will call back with an update. Oct, History of COVID-19 (ICD-10 - Z86.16) Lung sounds are satisfactory today and doing generally well after having Covid. [facility] Other Evaluation note 11-02-2023 Note Date & Type Note Facility 11-02-2023 Evaluation note Encounter Date Diagnosis Assessment Notes Oct, COVID- 19 (ICD-1 0 - U07.1) [facility] Other Evaluation note 12-28-2022 Note Date & Type Note Facility 12-28-2022 Evaluation note Encounter Date Diagnosis Assessment Notes Dec, Sore throat (ICD-10 - J02.9) In house RSV is positive. Covid, flu, and strep is all negative. Treatment discussed in TE. Dec, Cough (ICD-10 - R05.9) [facility] Other Evaluation note 02-04-2022 Note Date & Type Note Facility 02-04-2022 Evaluation note Encounter Date Diagnosis Assessment Notes Jan, Dizziness (ICD-10 - R42) Negative covid, influenza and strep test obtained on the patient today. Symptoms of dizziness, cold sweats and nausea onset was four days ago. I recommend she reduce her caffeine intake and push water , rest over the weekend. Jan, Nausea (ICD-10 - R11.0) Normal In house urinalysis and negative test recommended ,collected and reviewed. Upon examination the patient does not appear to be dehydrated, abdomin is normal. I recommend she push fluids , add mild food as tolerated. I did provide the above medication to see if this helps. Jan, Cold sweat (ICD-10 - R68.89) see dizziness treatment plan Jan, Family history of diabetes mellitus (ICD-10 - Z83.3) In house glucose finding of 110 obtained in the office today. Jan, Sore throat (ICD-10 - J02.9) Negative in house strep test obtained today. [facility] Other History general Narrative - Reported 12-28-2018 Note Date & Type Note Facility 12-28-2018 History general N arrative - Reported Type Medical History Gallbladder US 12/2018- Neg Surgical History No Surgical history information [facility] Other Evaluation note Note Date & Type Note Facility Evaluation note No Information [employer] Other Summary Purpose Family History No Family History Records FoundNo Family History Records Found Advance Directives No Advanced Directives Records FoundNo Advanced Directives Records Found Additional Source Comments INFORMATION SOURCE (unrecogn ized section and content) DATE CREATED AUTHOR 12/29/2021 [facility] DATE CREATED AUTHOR AUTHOR'S ORGANIZ ATION 11/16/2022 [facility] REASON FOR VISIT (unrecogniz ed section and content) lightheaded and dizzinessCli nical Acute Illnesssore throat/coughClinicalclinicalClinical Acute Illnessrash/hives FOR RECORDS PERTAINING TO PATIENTS WHO ARE OR HAVE BEEN ENROLLED IN A CHEMICAL DEPENDENCY/SUBSTANCEABUSE PROGRAM, SOME INFORMATION MAY BE OMITTED. This clinical summary was aggregated from multiple sources. Caution should be exercised in using it in the provision of clinical care. This summary normalizes information from multiple sources, and as a consequence, information in this document may materially change the coding, format and clinical context of patient data. In addition, data may be omitted in some cases. CLINICAL DECISIONS SHOULD BE BASED ON THE PRIMARY CLINICAL RECORDS. [facility]. provides no warranty or guarantee of the accuracy or completeness of information in this document.
== END 2024-02-21 18:02 | disposition home or self-care (01) ==
PROVIDERS: Emergency Provider Emergency Medicine; PCP Family Medicine
DX: S83.91XA Sprain of unspecified site of right knee, initial encounter (principal); M25.561 Pain in right knee; X50.9XXA Other and unspecified overexertion or strenuous movements or postures, initial encounter
CPT/HCPCS: 73564; 99283